=== PATIENT | male | born 1985 | race Two or more races ===

== ENCOUNTER 2023-11-19 04:39 | Emergency (ER) | payer OTHER ==
[~2023-11-19] VITALS: Ht 165.1 cm; Wt 65.8 kg
[2023-11-19] MEDS: IV NS 0.9% 1,000 ML BAG IV ONE (06:00)
[2023-11-19] MEDS: ACETAMINOPHEN ES 500 MG TABLET PO ONE (06:00)
[2023-11-19] MEDS: PROCHLORPERAZINE EDISYLATE 10 MG/2 ML VIAL IM/IV ONE (06:00)
[2023-11-19] MEDS: diphenhydrAMINE HCL 50 MG/ML VIAL IV ONE (06:00)
[2023-11-19] MEDS ORDERED: diphenhydrAMINE HCL 50 MG/ML VIAL ONE (06:03)
[2023-11-19] MEDS ORDERED: PROCHLORPERAZINE EDISYLATE 10 MG/2 ML VIAL ONE (06:03)
[2023-11-19] MEDS ORDERED: ACETAMINOPHEN ES 500 MG TABLET ONE (06:04)
[2023-11-19] MEDS ORDERED: ACET-2605 PO (06:32)
[2023-11-19] MEDS ORDERED: METO-295 PO (06:32)
[2023-11-19] MEDS ORDERED: hydrALAZINE HCL IV 20 MG VIAL ONE (06:37)
[2023-11-19] MEDS: hydrALAZINE HCL IV 20 MG VIAL IV ONE (06:39)
[2023-11-19 07:33] VITALS: BP 134/80; TEMP 98.2; O2SAT 97
== END 2023-11-19 07:35 | disposition home or self-care (01) ==
LOC: ER 04:43
DX: G43.909 Migraine, unspecified, not intractable, without status migrainosus (principal); R11.2 Nausea with vomiting, unspecified
CPT/HCPCS: 99285; 96374; 96361; 96375 ×2; J0780; J1200; J0360; J7030